=== PATIENT | female | born 1945 | race Caucasian/White ===

== ENCOUNTER 2017-12-19 07:19 | Inpatient (IN) | payer OTHER, BC ==
[2017-12-19] MEDS ORDERED: NS 1,000 ML IV ONE (07:28)
--- NOTE | 2017-12-19 07:38 | EDPHY ---
HPI/HX/ROS/PE/MDM Narrative: CHIEF COMPLAINT: Cough HPI: This patient is a 72 year old female arriving with her complaining of cough and body aches. Her recently came home from a trip with a bad cough and diarrhea. She began feeling poorly two days ago with cough and subjective fever. Her cough is sometimes productive with clear sputum. She has generalized body aches, particularly in her hips and back. She took aspirin yesterday for symptom relief, but has not taken any other antipyretic or cold/ flu medications. She denies chest pain, vomiting, diarrhea, abdominal pain, or other associated symptoms. REVIEW OF SYSTEMS: Aside from elements discussed in the HPI, a comprehensive 10-point review of systems was reviewed and is negative. PMH: Arthritis, Depression, Hypothyroid, Hyperlipidemia. Pre-diabetic. SOCIAL HISTORY: . at bedside. Lives in [place]. Retired. PHYSICAL EXAM: General: Patient is alert. Appears weak: the patient needed to lift her own legs to get on to the bed, but declined any assistance. ENT:Eyes are normal to inspection. ENT inspection normal. Neck: Normal inspection. Full range of motion. Respiratory:No respiratory distress. Breath sounds normal bilaterally. Cardiovascular: Regular rate and rhythm. Strong peripheral pulses. Normal cap refill. Abdomen:The abdomen is nontender to palpation. There are no peritoneal signs. There are normal bowel sounds. Back: Normal to inspection. No tenderness to palpation. Skin: Normal color. No rash. Warm and dry. Extremities: Normal appearance. Full range of motion. Neuro: Oriented x3. Normal motor function. Normal sensory function. ED Course: 72 y/o female presents with cough and body aches onset two days ago. Exam largely unremarkable, though the patient had considerable difficulty getting in to bed and needed to lift her own legs up, appearing in pain. She denied assistance. Pulse 114, SpO2 80% on room air at triage. The patient is febrile at 37.7. On my exam, her lungs were clear to auscultation. SpO2 improved to 91% on 2L by nasal cannula. Discussed admission for further management. The patient is agreeable to this. Plan for chest x-ray, labs including CBC, chemistries, UA , troponin, lactic acid, flu swab, BNP, blood cultures. 08:15 Reviewed laboratory studies. Glucose elevated at 199. Lactic acid negative. Flu test pending at this time. Reviewed chest x-ray. Evidence of left lower lobe infiltrate. Pending radiologist read. 09:[address] Matthews, radiologist regarding infiltrate vs atelectasis on chest x-ray. Troponin mildly elevated at 0.035. Plan for EKG. 09:11 The 12 lead EKG was interpreted by myself. See hard copy and/or "tracemaster" electronic copy for interpretation. Sinus rhythm, rate 89. 09:14 Flu swab positive for influenza A. Plan to consult with hospitalist service. Discussed results with patient. Administered 75mg PO Tamiflu. Plan to proceed with admission as previously discussed. The patient and her are comfortable with this plan. 09:18 Spoke with hospitalist service. Dr. Schaffer accepts admission to med/surg for pneumonia, flu. Plan to administer 500mg IV Azithromycin, 1gm IV Rocephin. - Data Points Imaging Results: Imaging Impressions Chest X-Ray 12/19/17 07:29 Impression: Airways disease and bibasilar atelectasis. Imaging: I viewed and interpreted images myself Laboratory Results: Laboratory Results 12/19/17 07:45 12/19/17 07:45 12/19/17 12/19/17 12/19/17 07:45 07:45 07:45 WBC 7.06 10^3/uL 10^3/uL (3.80-9.50) RBC 4.92 10^6/uL 10^6/uL (4.18-5.33) Hgb 14.2 g/dL g/dL (12.6-16.3) Hct 38.9 % % (38.0-47.0) MCV 79.1 fL L fL (81.5-99.8) MCH 28.9 pg pg (27.9-34.1) MCHC 36.5 g/dL g/dL (32.4-36.7) RDW 12.8 % % (11.5-15.2) Plt Count 137 10^3/uL L 10^3/uL (150-400) MPV 8.7 fL fL (8.7-11.7) Neut % (Auto) 80.6 % H % (39.3-74.2) Lymph % (Auto) 10.5 % L % (15.0-45.0) Tucker % (Auto) 7.9 % % (4.5-13.0) Eos % (Auto) 0.0 % L % (0.6-7.6) Baso % (Auto) 0.4 % % (0.3-1.7) Nucleat RBC Rel Count 0.0 % % (0.0-0.2) Absolute Neuts (auto) 5.69 10^3/uL 10^3/uL (1.70-6.50) Absolute Lymphs (auto) 0.74 10^3/uL L 10^3/uL (1.00-3.00) Absolute Monos (auto) 0.56 10^3/uL 10^3/uL (0.30-0.80) Absolute Eos (auto) 0.00 10^3/uL L 10^3/uL (0.03-0.40) Absolute Basos (auto) 0.03 10^3/uL 10^3/uL (0.02-0.10) Absolute Nucleated RBC 0.00 10^3/uL 10^3/uL (0-0.01) Immature Gran % 0.6 % % (0.0-1.1) Immature Gran # 0.04 10^3/uL 10^3/uL (0.00-0.10) VBG Lactic Acid 1.8 mmol/L mmol/L (0.7-2.1) Sodium 141 mEq/L mEq/L (135-145) Potassium 4.3 mEq/L mEq/L (3.5-5.2) Chloride 102 mEq/L mEq/L (97-110) Carbon Dioxide 25 mEq/l mEq/l (22-31) Anion Gap 14 mEq/L mEq/L (8-16) BUN 13 mg/dL mg/dL (7-23) Creatinine 0.8 mg/dL mg/dL (0.6-1.0) Estimated GFR > 60 Glucose 199 mg/dL H mg/dL (70-100) Calcium 9.0 mg/dL mg/dL (8.5-10.4) Troponin I 0.035 ng/mL H ng/mL (0.000-0.034) NT-Pro-B Natriuret Pep 275 pg/mL H pg/mL (0-125) Specimen Hemolysis 108 Nasal Influenza A PCR Nasal Influenza B PCR 12/19/17 07:44 WBC RBC Hgb Hct MCV MCH MCHC RDW Plt Count MPV Neut % (Auto) Lymph % (Auto) Tucker % (Auto) Eos % (Auto) Baso % (Auto) Nucleat RBC Rel Count Absolute Neuts (auto) Absolute Lymphs (auto) Absolute Monos (auto) Absolute Eos (auto) Absolute Basos (auto) Absolute Nucleated RBC Immature Gran % Immature Gran # VBG Lactic Acid Sodium Potassium Chloride Carbon Dioxide Anion Gap BUN Creatinine Estimated GFR Glucose Calcium Troponin I NT-Pro-B Natriuret Pep Specimen Hemolysis Nasal Influenza A PCR FLU A DETECTED H (NEGATIVE) Nasal Influenza B PCR NEGATIVE FOR FLU B (NEGATIVE) Medications Given: Discontinued Medications Sodium Chloride (Ns) 1,000 mls @ 0 mls/hr IV ONCE ONE; Wide Open PRN Reason: Protocol Stop: 12/19/17 07:29 Last Admin: 12/19/17 07:48 Dose: 1,000 mls Oseltamivir Phosphate (Tamiflu) 75 mg PO EDNOW ONE Stop: 12/19/17 09:18 Last Admin: 12/19/17 09:38 Dose: 75 mg General Initial Vital Signs: Initial Vital Signs Temperature (C) 37.7 C 12/19/17 07:26 Heart Rate 114 H 12/19/17 07:26 Respiratory Rate 20 12/19/17 07:26 Blood Pressure 120/72 12/19/17 07:26 O2 Sat (%) 80 L 12/19/17 07:26 O2 Delivery Mode Nasal Cannula O2 (L/minute) 4 Allergies/Adverse Reactions: ciprofloxacin [From Cipro] Allergy (Mild, Verified 12/19/17 09:46) ciprofloxacin HCl [From Cipro] Allergy (Mild, Verified 12/19/17 09:46) Home Medications: Medication Instructions Recorded Atorvastatin Calcium [Lipitor 20 20 mg PO HS 12/19/17 mg (*)] Escitalopram Oxalate [Lexapro] 10 mg PO HS 12/19/17 Levothyroxine [Synthroid 50 mcg 50 mcg PO HS 12/19/17 (*)] metFORMIN SR [Glucophage XR 500 mg 1,000 mg PO DAILY@1800 12/19/17 (*)] traZODone [traZODone 150MG (*)] 150 mg PO HS PRN 12/19/17 Departure - Departure Referrals: GISELLA VEE [Primary Care Provider] - As per Instructions Report Scribed for: Gee Bain Report Scribed by: Ama More Date of Report: 12/19/17 Time of Report: 07:33 Physician Review and Approval Statement: Portions of this note were transcribed by an ED scribe. I personally performed the history, physical exam, and medical decision making; and confirm the accuracy of the information in the transcribed note.
[2017-12-19 07:59] LABS: PLATELET COUNT 137 10^3/uL (150-400)
--- NOTE | 2017-12-19 09:13 | CPEKG ---
Heart Rate: 89 RR Interval: 674 P-R Interval: 160 QRSD Interval: 98 QT Interval: 336 QTC Interval: 409 P Fombell: 28 QRS Fombell: -34 T Wave Fombell: 51 EKG Severity - BORDERLINE ECG - EKG Impression: SINUS RHYTHM EKG Impression: LEFT AXIS DEVIATION EKG Impression: BORDERLINE T WAVE ABNORMALITIES Electronically Signed By: Rome Bearden 23-Dec-2017 17:25:22
[2017-12-19] MEDS ORDERED: cefTRIAXone 1 GM in STERILE WATER INJ 10 ML IV ONE (09:17)
[2017-12-19] MEDS ORDERED: AZITHROMYCIN IV 500 MG in D5W 250 ML IV ONE (09:17)
[2017-12-19] MEDS ORDERED: OSELTAMIVIR PHOSPHATE 75 MG CAP PO ONE (09:17)
[2017-12-19] MEDS ORDERED: OXYCODONE/APAP 5/325 TAB PO PRN (15:39)
[2017-12-19] MEDS ORDERED: ACETAMINOPHEN 325 MG TAB PO PRN (15:39)
[2017-12-19] MEDS ORDERED: ONDANSETRON 4 MG/2 ML VIAL IVP PRN (15:39)
[2017-12-19] MEDS ORDERED: ONDANSETRON DISINTEGRATING 4 MG TAB PO PRN (15:39)
[2017-12-19 17:10] LABS: INR 1.18 (0.83-1.16); PROTIME(PATIENT) 15.2 SEC (12.0-15.0)
[2017-12-19] MEDS ORDERED: LIDOCAINE 1% 300 MG/30 ML SDV ONE (17:25)
--- NOTE | 2017-12-19 17:45 | GHP ---
[f rep st] HISTORY AND PHYSICAL DATE OF ADMISSION: 12/19/2017 CHIEF COMPLAINT: Cough with lower extremity weakness. HISTORY OF PRESENT ILLNESS: This is a 72-year-old female, who has about a 4-day history of viral flu -like illness. Two days before that, her came back from a trip, and he was sick. She has lance d cough and shortness of breath, fatigue. She has also had fevers and chills. She has also develope d lower extremity weakness. She said a few days ago she collapsed, and she has essentially been unab le to stand or bear her own weight since then. She is having significant amount of hip flexor pain. She is unsure if that is contributing to her weakness. She has had some back pain as well, and she has some known back pain from a bone spur which is causing some chronic radicular pain. The pain devan t she is feeling in her hip is different. She said she did not injure herself when she fell, and her just caught her. REVIEW OF SYSTEMS: A 10-point review of systems was obtained and was negative. PAST MEDICAL HISTORY: 1. Prediabetes. 2. Hypertension. 3. Hypothyroidism. 4. Depression. MEDICATIONS: Reviewed. SOCIAL HISTORY: No smoking or alcohol. FAMILY HISTORY: Reviewed and noncontributory. PHYSICAL EXAM: VITAL SIGNS: Temperature is 37.7, blood pressure 123/62, heart rate 86, oxygen satur ation 91% on 3 L, in the 80s on room air. GENERAL: The patient is well developed, no acute distress . HEENT: Nonicteric sclerae. Extraocular movements intact. Moist mucous membranes. NECK: Supple . No thyromegaly. LUNGS: Good effort. Some coarse rhonchi bilaterally, especially at the bases. No wheezing. CARDIOVASCULAR: Regular rate and rhythm. No murmurs, rubs, or gallops. ABDOMEN: Pos itive bowel sounds. Soft, nontender, nondistended. No hepatosplenomegaly. EXTREMITIES: No clubbin g, cyanosis, or edema. SKIN: Without rash. Dry. Intact. NEURO: Alert and oriented x3. She has significant weakness in her hip flexors, as well as her quadriceps and, although her dorsiflexion see ms to be preserved. She has absent quadriceps reflexes, although they were present in the biceps reg ion. PSYCH: Normal affect. LABS: CBC: There is still elevation of white blood cell count. Chemistry is normal. Troponin is s lightly elevated at 0.035. EKG personally reviewed and interpreted. Normal sinus rhythm with some T -wave flattening. Chest x-ray personally reviewed and interpreted. Bibasilar atelectasis. No defin itive pneumonia. ASSESSMENT: A 72-year-old female, presenting with influenza A and lower extremity weakness concernin g for Guillain-[place]. PLAN: 1. Influenza A. Will continue Tamiflu. 2. Possible pneumonia. Procalcitonin is on the low side. There is no convincing evidence for bacte rial pneumonia. Will hold off on antibiotics. 3. Rule out Guillain-[place]. Her lower extremity weakness is significant and is more than can just b e attributed to a viral illness. This is suspicious for Guillain-[place], although would have expected it to start a little bit later. I have discussed the case with Neurology. Will go ahead and get an LP tonight. I will consider IVIG if this is positive for protein or if the clinical suspicion is hi gh enough. 4. Mild elevation of troponin. This may be due to strain and hypoxia. Will get another one in the morning. She probably should get a stress test at some point, as she has significant risk factors fo r coronary disease. 5. Prediabetes. Will monitor blood sugars. 6. Hyperlipidemia. /[id number]/MODL
--- NOTE | 2017-12-19 17:49 | NEUROPROG ---
Assessment: attempted to see patient but gone to lumbar puncture, will see patient tomorrow morning. I will check a CK looking for myositis as well. Nurse given my cell number ([phone]) and told to call me for any concerns or questions. Objective: Vital Signs Temp Pulse Resp BP Pulse Ox 36.5 C 86 16 123/62 H 91 L 12/19/17 15:17 12/19/17 15:17 12/19/17 15:17 12/19/17 15:17 12/19/17 15:17 12/18/17 12/19/17 12/20/17 05:59 05:59 05:59 Intake Total 1000 Balance 1000 PT 15.2 SEC (12.0-15.0) H 12/19/17 07:45 INR 1.18 (0.83-1.16) H 12/19/17 07:45 Allergies/Adverse Reactions: ciprofloxacin [From Cipro] Allergy (Mild, Verified 12/19/17 09:46) ciprofloxacin HCl [From Cipro] Allergy (Mild, Verified 12/19/17 09:46)
--- NOTE | 2017-12-19 17:59 | PDMN ---
Medical Necessity Medical necessity: C/M review: est. > 2 MN LOS for eval and TX of acute and persistent influenza A, significant lower extremity weakness concerning for Guillain-Garre, possible pneumonia, elevation of troponin, requiring planned 12/19/2017 lumbar puncture, ongioing cardiac monitoring, IV fluids, pulse oximetry, supplemental O2, acute inpt PT/OT, comorbid prediabetes, hyperlipidemia, history of hypothyroidism, depression per H/P.
[2017-12-19] MEDS: metFORMIN SR 500 MG TAB PO SCH (19:13)
[2017-12-19] MEDS: OSELTAMIVIR PHOSPHATE 75 MG CAP PO SCH (19:14)
[2017-12-19] MEDS: NS 1,000 ML IV SCH (19:21)
[2017-12-19] MEDS: ESCITALOPRAM OXALATE 10 MG TAB PO SCH (20:04)
[2017-12-19] MEDS: ATORVASTATIN CALCIUM 20 MG TAB PO SCH (20:04)
[2017-12-19] MEDS: LEVOTHYROXINE 50 MCG TAB PO SCH (20:04)
[2017-12-20] MEDS: NS 1,000 ML IV SCH (04:04)
[2017-12-20 05:14] LABS: PLATELET COUNT 121 10^3/uL (150-400)
[2017-12-20] MEDS: OSELTAMIVIR PHOSPHATE 75 MG CAP PO SCH ×2 (08:37→18:03)
--- NOTE | 2017-12-20 09:26 | HOSPPROG ---
Hospitalist Progress Note Assessment/Plan: * influenza * Tamiflu * questionable pneumonia * Hold off on any antibiotics. She has peer speech doing better with just Tamiflu in fluids * lower extremity weakness * Unclear cause * CSF not consistent with Guillain-Gonvick * She does have chronic back pain and a bone spur - will get MRI of the spine * Neurology will see today -greatly appreciated * hypoxic respiratory failure * mild troponin elevation * Would probably get a stress test prior to discharge * Many risk factors * prediabetes versus diabetes * Check hemoglobin A1c * hyperlipidemia * depression *DVT prophylaxis * Start Lovenox Subjective: Feels a little bit better but still pretty weak in lower extremities Objective: Vital Signs Temp Pulse Resp BP Pulse Ox 37.6 C 81 20 119/60 92 12/20/17 07:09 12/20/17 07:09 12/20/17 07:09 12/20/17 07:09 12/20/17 07:09 Microbiology 12/19/17 18:10 Gram Stain - Final Cerebral Spinal Fluid Laboratory Results 12/20/17 05:00 12/20/17 05:00 12/19/17 12/20/17 12/21/17 05:59 05:59 05:59 Intake Total 1228 Balance 1228 PT 15.2 SEC (12.0-15.0) H 12/19/17 07:45 INR 1.18 (0.83-1.16) H 12/19/17 07:45 - Physical Exam Constitutional: no apparent distress, appears nourished, not in pain Eyes: anicteric sclera, EOMI Ears, Nose, Mouth, Throat: moist mucous membranes, hearing normal, ears appear normal Cardiovascular: regular rate and rhythym, no murmur, rub, or gallop Respiratory: no respiratory distress, no rales or rhonchi, clear to auscultation Gastrointestinal: normoactive bowel sounds, soft, non-tender abdomen, no palpable masses Skin: warm Neurologic: AAOx3, other (Profound weakness in the hip flexors less weakness in the quadriceps and ft plantar flexion)
[2017-12-20] MEDS: ENOXAPARIN 40 MG/0.4 ML SYR SC SCH (10:23)
--- NOTE | 2017-12-20 10:26 | NEUROPROG ---
Assessment: [id number] - Neurology Consult: - CC: Dr. Cathleen Scott, hospitalist, consulted neurology for weakness. Results placed in EMR for his review. - HPI: Pt reported recently ill with cough and diarrhea. 2 days prior to admission patient began feeling poorly with cough and generalized body aches. She was admitted to [facility] on 12/19/17. On admission her legs were noted to be weak prompting a neurology consultation. She denied any other neurologic problems and has no fixed sensory loss. She was found to have Flu A. I initially saw her on 12/20/17. She reported a history of chronic back pain but also reported new proximal bilateral leg weakness and worsened back pain. Neurologic exam showed bilateral proximal leg weakness but normal reflexes in arms and bilateral patella. Trace to normal at achilles. Her clinical picture is not consistent with Guillian [place] Syndrome and CK was normal at 88 so does not appear to be a myositis. I will recommend a lumbar MRI w/o con to further evaluate. Lumbar puncture results show a traumatic tap but was otherwise unremarkable except for slightly elevated glucose (not consistent with Guillian [place] Syndrome). - PMHx: arthritis, depression, hypothyroid, HLD, prediabetic - SHx: FHx: grandparents are - ROS: Pt denied acute fever, total vision loss, active severe chest pain, respiratory failure, total body severe rash, total bowel/bladder incontinence, psychosis, active seizures, or active bleeding - O: VS reviewed General: Alert Eyes: Fundoscopic exam not able to visualize optic disks CV: Heart RRR, no murmur, no carotid bruit Lungs: Clear to auscultation bilaterally, no rhonchi or rales Neuro: - Mental: . Oriented x person/place/date . concentration appears normal . speech fluency/comprehension normal . memory appears normal . fund of knowledge appear intact - Cranial Nerves: . II: PERRL, VFFTC . III/IV/: Slightly disconjugate eyes but patient states this is long- standing and not new, horizontal gaze-evoked nystagmus but no clinical complaints of vision problems, normal smooth pursuits, no Ptosis . V: facial sensation intact to LT . VII: face symmetric to eye closure and smile . VIII: hearing intact to conversation . IX/X: uvula raises symmetrically . XI: SCM 5/5 B/L strength . XII: tongue protrudes midline w/nl strength - Motor: . Tone: normal tone in all 4 extremity . Strength: normal except for b/l proximal leg weakness 4/5 - Reflexes: B/L bic/BR/patella 2/, b/l ach 1/4 - Sensory: all 4 extremity intact to light touch - Coord: [id number] wnl, KIARA wnl - Gait: deferred - Labs: 12/19/17- CBC Plt 137, Chem Gluc 199H, Flu A+, CK 88 12/19/17- CSF clear/colorless, RBC 255H WBC 2 Prot 51 Gluc 104H - Rads: 12/19/17- CXR: airway disease and bibasilar atelectasis (I personally visualized the images on 12/19/17) - Assessment: 1. Bilateral Proximal Leg Weakness on 12/20/17: Neurologic exam showed bilateral proximal leg weakness but normal reflexes in arms and bilateral patella. Lumbar puncture results show a traumatic tap but was otherwise unremarkable except for slightly elevated glucose (not consistent with Guillian [place] Syndrome). Her clinical picture is not consistent with Guillian [place] Syndrome and CK was normal at 88 so does not appear to be a myositis. I will recommend a lumbar MRI w/o con to further evaluate. She could have chronic lumbar degenerative disease with superimposed weakness from flu infection to explain her condition if the lumbar MRI is consistent with this finding. - 2. Flu - Plan: - Lumbar MRI w/o con - Neurology will continue to follow closely Objective: Vital Signs Temp Pulse Resp BP Pulse Ox 37.6 C 81 20 119/60 92 12/20/17 07:09 12/20/17 07:09 12/20/17 07:09 12/20/17 07:09 12/20/17 07:09 Microbiology 12/19/17 18:10 Gram Stain - Final Cerebral Spinal Fluid Laboratory Results 12/20/17 05:00 12/20/17 05:00 12/19/17 12/20/17 12/21/17 05:59 05:59 05:59 Intake Total 1228 Balance 1228 PT 15.2 SEC (12.0-15.0) H 12/19/17 07:45 INR 1.18 (0.83-1.16) H 12/19/17 07:45 Allergies/Adverse Reactions: ciprofloxacin [From Cipro] Allergy (Mild, Verified 12/19/17 09:46) ciprofloxacin HCl [From Cipro] Allergy (Mild, Verified 12/19/17 09:46)
--- NOTE | 2017-12-20 12:56 | ASMTCMCOM ---
CM Note CM Note Notes: Patient admitted for Influenza and PNA and also persistent weakness in her lower extremeties. Guillian [place] was a consideration, but her clinical picture is not consistent with this. Neurology saw her today and has ordered a lumbar MRI. They will follow. PT/OT have also been ordered. Patient lives independently with . Current CM discharge plan: TBD Date Signed: 12/20/2017 12:56 PM Electronically Signed By:Angelika Deal RN
[2017-12-20] MEDS: metFORMIN SR 500 MG TAB PO SCH (18:03)
[2017-12-20] MEDS: LEVOTHYROXINE 50 MCG TAB PO SCH (20:31)
[2017-12-20] MEDS: ATORVASTATIN CALCIUM 20 MG TAB PO SCH (20:31)
[2017-12-20] MEDS: ESCITALOPRAM OXALATE 10 MG TAB PO SCH (20:31)
--- NOTE | 2017-12-21 09:19 | NEUROPROG ---
Assessment: INTERVAL HISTORY: Assuming care from Dr. Lima. Patient feeling a bit better from a URI standpoint. However, still having a lot of pain in her hips and low back limiting her walking. No sensory changes, bowel/bladder disturbance. Feels like the left hip "just got an injection gone bad." Has minimal pain in the left hip when seated, but pain becomes severe/debilitating in both hips when weight-bearing to the point where she cannot safely walk. EXAM: VS reviewed in EMR GEN: WDWN sitting in NAD HEENT: NCAT, sclera anicteric, conjunctiva not injected, MMM, oropharynx clear, no scalp tenderness NECK: supple, nontender, no meningismus CV: RRR s1 s2 wo m/r/c/g. Carotid pulses 2+ wo bruit NEURO: MS: awake, alert, oriented to all spheres. Speech nondysarthric. No language disturbance. Follows commands. Attends to both sides. Recent/remote memory grossly intact. Mood euthymic. Good fund of knowledge. CN: pupils 3mm round and reactive. VFF. 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 Full ocular motility. Facial sensation preserved. Face symmetric. Hearing grossly intact to finger rub. Palatoglossal movements intact. Shoulder shrug and head turn strong. MOTOR: normal bulk/tone. No adventitial movements. Bilateral hip flexors with giveway weakness secondary to pain, otherwise full power throughout. SENSORY: intact to all modalities throughout. No extinction. COORD: no ataxia FN/HS. Levon preserved. REFLEX: plantars down. No clonus. Trace ankle jerks, other DTRS 2/4. GAIT: she is unable to bear weight due to pain DATA REVIEW: Labs reviewed in EMR CPK 88 CSF results show traumatic tap with RBCs but otherwise unremarkable profile, gram stain/culture neg PERSONALLY INTERPRETED RESULTS AND DATA: MRI L-spine - sacral insufficiency fracture at S1, mild degenerative changes, no significant neural foraminal or central canal stenosis IMPRESSION AND RECOMMENDATIONS: // INFLUENZA A // BILATERAL HIP PAIN // GAIT DIFFICULTY Patient with significant hip/low back pain manifest after developing influenza A infection. Her main issue is that of pain in the hips limiting her ambulation. Her neurologic exam and studies do not find a primary neurologic process responsible for her pain and gait difficulty. Semiology of her symptoms seems like it may be along a spectrum of a reactive arthritis from her viral infection. Would consider a trial of anti-inflammatory. Continue with PT. Defer further orthopedic/rheumatologic workup to primary team. Will sign off. Recall PRN. 25 mins in direct patient care activities on the floor. Objective: Vital Signs Temp Pulse Resp BP Pulse Ox 36.9 C 88 20 115/73 93 12/21/17 08:00 12/21/17 08:00 12/21/17 08:00 12/21/17 08:00 12/21/17 08:00 Microbiology 12/19/17 18:10 Gram Stain - Final Cerebral Spinal Fluid Laboratory Results 12/20/17 05:00 12/20/17 05:00 12/20/17 12/21/17 12/22/17 05:59 05:59 05:59 Intake Total 1228 3262 Output Total 1200 200 Balance 1228 2062 -200 PT 15.2 SEC (12.0-15.0) H 12/19/17 07:45 INR 1.18 (0.83-1.16) H 12/19/17 07:45 Allergies/Adverse Reactions: ciprofloxacin [From Cipro] Allergy (Mild, Verified 12/19/17 09:46) ciprofloxacin HCl [From Cipro] Allergy (Mild, Verified 12/19/17 09:46)
[2017-12-21] MEDS: ENOXAPARIN 40 MG/0.4 ML SYR SC SCH (09:20)
[2017-12-21] MEDS: OSELTAMIVIR PHOSPHATE 75 MG CAP PO SCH ×2 (09:20→18:04)
--- NOTE | 2017-12-21 13:55 | ASMTCMCOM ---
CM Note CM Note Notes: CM met w/ pt for dispo planning. PT is recommending SNF. Pt reports that she is not interested in going to SNF at this time. Pt reports that she would prefer to have HC. Pt is aware that she would need to be home bound. Pt would like a referral made to [facility]. [facility] is able to accept. Pt reports that her and friends are supportive. CM available for changes. Plan: [facility], PT and OT Date Signed: 12/21/2017 01:54 PM Electronically Signed By:LINA Martinez
--- NOTE | 2017-12-21 14:53 | HOSPPROG ---
Hospitalist Progress Note Assessment/Plan: # influenza A - tamiflu # acute hypoxic resp failure d/t influenza; no wheezing - cont tamiflu - check CTA # L hip pain - check hip XR - cont percocet, k-pad # LE weakness - unclear if d/t pain - no primary cause per neurology - check esr/crp # DM2 - check A1c; metformin # sacral fx - she thinks this is old; no sacral TTP; hold on ortho eval at this point # hld - statin # depr - lexapro # atelectasis - IS Subjective: c/o pain in her hip Objective: Vital Signs Temp Pulse Resp BP Pulse Ox 36.9 C 80 16 132/53 H 91 L 12/21/17 11:52 12/21/17 11:52 12/21/17 11:52 12/21/17 11:52 12/21/17 11:52 Microbiology 12/19/17 18:10 Gram Stain - Final Cerebral Spinal Fluid Laboratory Results 12/20/17 05:00 12/20/17 05:00 12/20/17 12/21/17 12/22/17 05:59 05:59 05:59 Intake Total 1228 3262 Output Total 1200 200 Balance 1228 2062 -200 PT 15.2 SEC (12.0-15.0) H 12/19/17 07:45 INR 1.18 (0.83-1.16) H 12/19/17 07:45 chart reviewed MRI reviewed - Physical Exam Ears, Nose, Mouth, Throat: moist mucous membranes, hearing normal Cardiovascular: regular rate and rhythym, no murmur, rub, or gallop Respiratory: no respiratory distress, no rales or rhonchi Gastrointestinal: normoactive bowel sounds, soft, non-tender abdomen Musculoskeletal: other (very TTP in left upper leg/hip) ICD10 Worksheet Patient Problems: Problems Problem Status Onset Hypoxia Acute
[2017-12-21] MEDS ORDERED: IOPAMIDOL (ISOVUE 370) 100 ML BTL IV ONE (16:03)
[2017-12-21] MEDS: ATORVASTATIN CALCIUM 20 MG TAB PO SCH (20:12)
[2017-12-21] MEDS: LEVOTHYROXINE 50 MCG TAB PO SCH (20:12)
[2017-12-21] MEDS: ESCITALOPRAM OXALATE 10 MG TAB PO SCH (20:12)
[2017-12-22 05:34] LABS: PLATELET COUNT 143 10^3/uL (150-400)
[2017-12-22 07:42] VITALS: RESP 18
--- NOTE | 2017-12-22 08:59 | HOSPPROG ---
Hospitalist Progress Note Assessment/Plan: # influenza A - tamiflu # acute hypoxic resp failure d/t influenza # L hip pain - XR negative; better today - cont oxy, schedule apap, cont k-pad # LE weakness/pain - suspect pain is the driving factor - no primary cause per neurology - trial anti-inflammatory, possibly tomorrow # DM2 - A1c 8.6% - hold metformin post contrast # sacral fx - she thinks this is old; no sacral TTP; hold on ortho eval at this point # hld - statin # depr - lexapro # atelectasis - IS # dvt ppx - lovenox Subjective: feels stronger today; ongoing dyspnea Objective: Vital Signs Temp Pulse Resp BP Pulse Ox 37.0 C 80 18 111/55 L 89 L 12/22/17 07:42 12/22/17 07:42 12/22/17 07:42 12/22/17 07:42 12/22/17 07:42 Microbiology 12/19/17 18:10 Gram Stain - Final Cerebral Spinal Fluid Laboratory Results 12/22/17 05:06 12/22/17 05:06 12/21/17 12/22/17 12/23/17 05:59 05:59 05:59 Intake Total 3262 500 Output Total 1200 2049 Balance 2061 -155 PT 15.2 SEC (12.0-15.0) H 12/19/17 07:45 INR 1.18 (0.83-1.16) H 12/19/17 07:45 hip XR reviewed CTA reviewed tele personally reviewed - Physical Exam Constitutional: no apparent distress, appears nourished Cardiovascular: regular rate and rhythym, no murmur, rub, or gallop Respiratory: no respiratory distress, no rales or rhonchi, clear to auscultation Gastrointestinal: soft, non-tender abdomen, no palpable masses ICD10 Worksheet Patient Problems: Problems Problem Status Onset Hypoxia Acute
[2017-12-22] MEDS ORDERED: ACETAMINOPHEN 325 MG TAB PO SCH (09:00)
[2017-12-22] MEDS ORDERED: POTASSIUM CL 20 MEQ TAB PO ONE (09:01)
[2017-12-22] MEDS: ENOXAPARIN 40 MG/0.4 ML SYR SC SCH (09:24)
[2017-12-22] MEDS: OSELTAMIVIR PHOSPHATE 75 MG CAP PO SCH ×2 (09:25→17:38)
[2017-12-22] MEDS: ACETAMINOPHEN 500 MG TAB PO SCH ×3 (09:25→22:06)
[2017-12-22] MEDS: ATORVASTATIN CALCIUM 20 MG TAB PO SCH (20:27)
[2017-12-22] MEDS: LEVOTHYROXINE 50 MCG TAB PO SCH (20:28)
[2017-12-22] MEDS: ESCITALOPRAM OXALATE 10 MG TAB PO SCH (20:28)
[2017-12-22 21:59] VITALS: O2SAT 93
[2017-12-23 08:00] VITALS: BP 101/58; PULSE 73; TEMP 98.1
[2017-12-23] MEDS: OSELTAMIVIR PHOSPHATE 75 MG CAP PO SCH ×2 (09:22→15:34)
[2017-12-23] MEDS: ENOXAPARIN 40 MG/0.4 ML SYR SC SCH (09:22)
[2017-12-23] MEDS: ACETAMINOPHEN 500 MG TAB PO SCH (09:22)
--- NOTE | 2017-12-23 10:27 | PDIAF ---
- Diagnosis Diagnosis: influenza, hypoxia, weakness Code Status: Full Code - Medication Management Discharge Medications: Medications to Continue on Transfer Atorvastatin Calcium [Lipitor 20 mg (*)] 20 mg PO HS 12/19/17 [Last Taken ] Escitalopram Oxalate [Lexapro 10 MG] 10 mg PO HS 12/19/17 [Last Taken 12/18/17] Levothyroxine [Synthroid 50 mcg (*)] 50 mcg PO HS 12/19/17 [Last Taken 12/18/17] metFORMIN SR [Glucophage XR 500 mg (*)] 1,000 mg PO DAILY@1800 12/19/17 [Last Taken 12/18/17] traZODone [traZODone 150MG (*)] 150 mg PO HS PRN 12/19/17 [Last Taken 12/18/17] oxyCODONE IR [Oxycodone Ir (*)] 5 - 10 mg PO Q4HRS PRN #15 tab 12/23/17 [Last Taken Unknown] Discharge Medications: Refer to the Discharge Home Medication list for PRN reason. - Orders Services needed: Home Care, Physical Therapy, Occupational Therapy Home Care Face to Face: I certify that this patient was under my care and that I had the required [id number] encounter meeting the encounter requirements on the discharge day. My findings support the fact that the patient is homebound as defined in Home Care Face to Face Continued: [facility] Chapter 7 Medicare Benefits Manual 30.1.1 , The condition of the patient is such that there exists a normal inability to leave home and consequently, leaving home would require a considerable and taxing effort. Isolation Type: Droplet Isolation Oxygen: 2L Diet Recommendation: no restrictions on diet - Follow Up Care Current Providers and Referrals: GISELLA VEE [Primary Care Provider] - As per Instructions
--- NOTE | 2017-12-23 10:29 | PDHOMEO2F ---
Home Oxygen Face to Face Home Orders: I certify that a physician or a nurse practitioner or physician's social media assistant has had a [id number] encounter with this patient on the date of this order due to the diagnosis listed, which relates to the primary reason the patient requires home oxygen. Alternative treatments have been tried, or considered, and deemed ineffective. It is anticipated that supplemental oxygen will result in improvement with treatment. Home oxygen qualifying diagnosis: influenza SpO2 on room air (%): 86% Frequency of home oxygen needed: continuous Home oxygen liters per minute: 2L Home oxygen delivery device: nasal cannula Concentrator: Yes E-tanks for mobility and back up: Yes If ordering portable O2, is the patient mobile in the home?: Yes I certify that, based on these findings, the home oxygen is medically necessary for this patient for the following length of time. Length of time home oxygen needed: 3 months
--- NOTE | 2017-12-23 11:16 | GDS ---
[f rep st] DISCHARGE SUMMARY ALL DIAGNOSES: 1. Influenza. 2. Weakness. 3. Acute hypoxic respiratory failure. 4. Left hip pain. 5. Diabetes mellitus, type 2. 6. Sacral fracture, likely old. 7. Hyperlipidemia. 8. Depression. 9. Atelectasis. 10. Mildly elevated troponin. HOSPITAL COURSE BY PROBLEM: 1. Influenza/acute hypoxic respiratory failure: She has improved. She is still somewhat short of b reath. She needs oxygen on discharge. I have written her prescription for this. 2. Lower extremity weakness: Seen by Neurology. [place] that this is most likely secondary to pain fr om her fall. She is improving. She has been seen by PT and OT, who feel that she is safe at home. 3. Mild troponin elevation: I have discussed this with her. She has had no chest pain. She will f ollow up with her primary care physician to consider an outpatient stress test. Her EKG is not ische stephon. ALL CONSULTATIONS: Neurology. IMPORTANT DIAGNOSTICS: Lumbar spine MRI showing an S1 sacral insufficiency fracture. No clear cord or foraminal stenosis. BILLING: I spent more than 30 minutes on the day of discharge. FOLLOWUP: Primary care physician for followup post hospitalization, as well as consideration of a ca rdiac stress test. /[id number]/MODL
[2017-12-23] MEDS: oxyCODONE IR 5 MG TAB PO PRN ×2 (11:34→14:56)
[2017-12-23] MEDS ORDERED: LIDOCAINE 5% 1 EA PATCH TD SCH (14:45)
--- NOTE | 2017-12-23 17:35 | ASDISCHSUM ---
Discharge Information Plan Status:Home with Home Health Medically Cleared to Leave: Discharge Date:12/23/2017 03:47 PM CM D/C Disposition:Home Health Service ADT D/C Disposition:Home Health Service Projected Discharge Date:12/23/2017 11:00 AM Transportation at D/C:Family Discharge Delay Reason: Follow-Up Date:12/23/2017 11:00 AM Discharge Slot: Final Diagnosis: Placement Information Referral Type:*Home Health Care Services Referral ID:[id number] Provider Name:[facility] Address 1:[address] [place] [address] Address 2: City:[place] Selection Factors: State:[place] Patient Contact Information Contact Name:LULAERIC Relationship: Address:[address] City:[place] Alternate Phone: State/Zip Code:[place] [address] Email: Financial Information Financial Class: Primary Plan Desc:MEDICARE INPATIENT Primary Plan Number:[id number] Secondary Plan Desc: [facility] Secondary Plan Number:[id number] Assessment Information [facility] CM Progress Note CM Note CM Note Notes: Patient admitted for Influenza and PNA and also persistent weakness in her lower extremeties. [place] was a consideration, but her clinical picture is not consistent with this. Neurology saw her today and has ordered a lumbar MRI. They will follow. PT/OT have also been ordered. Patient lives independently with . Current CM discharge plan: TBD Date Signed: 12/20/2017 12:56 PM Electronically Signed By:Angelika Deal RN [facility] CM Progress Note CM Note CM Note Notes: CM met w/ pt for dispo planning. PT is recommending SNF. Pt reports that she is not interested in going to SNF at this time. Pt reports that she would prefer to have HC. Pt is aware that she would need to be home bound. Pt would like a referral made to [facility]. [facility] is able to accept. Pt reports that her and friends are supportive. CM available for changes. Plan: [facility], PT and OT Date Signed: 12/21/2017 01:54 PM Electronically Signed By:LINA Martinez Case Management Discharge Plan Note Case Management Discharge Discharge Order Complete? Answers: Yes Patient to Obtain Answers: Independently Medications Transportation Arranged Answers: Family/Friends Discharge Comments Notes: D/w , pt will dc home with [facility], (PT/OT), Julia mars and RN to call report. Date Signed: 12/23/2017 12:15 PM Electronically Signed By:Courtney Ward RN Intervention Information Intervention Type:*IM-Signed Date of Service:12/23/2017 11:08 AM Patient Type:Inpatient Staff Member:Michelle Castillo Hours: Discipline: Severity: Comment:
[2017-12-23] MEDS ORDERED: PATCH REMOVAL 1 EA PATCH TD SCH (21:00)
== END 2017-12-23 15:47 | disposition home health service (06) | DRG 193 ==
LOC: F3E 10:00 → OBSVTOIN 15:39
PROVIDERS: ADMIT Internal Medicine; ATTEND Internal Medicine
PROC: 009U3ZX Drainage of Spinal Canal, Percutaneous Approach, Diagnostic (ICD-10-PCS; principal; 2017-12-19)
DX: J10.1 Influenza due to other identified influenza virus with other respiratory manifestations (principal); J96.01 Acute respiratory failure with hypoxia; J98.11 Atelectasis; M84.68XA Pathological fracture in other disease, other site, initial encounter for fracture; E11.9 Type 2 diabetes mellitus without complications; E78.5 Hyperlipidemia, unspecified; F32.9 Major depressive disorder, single episode, unspecified; M25.552 Pain in left hip; I10 Essential (primary) hypertension; E03.9 Hypothyroidism, unspecified
CPT/HCPCS: 96374; 97116-GP; 97161-GP; 97165-GO; 97530-GO; 97530-GP; 97535-GO; G8978-GP-CL; G8979-GP-CK; G8987-GO-CK; G8988-GO-CI; J0456; J0696; J1650; Q9967